=== PATIENT | female | born 1970 | race African-American/Black ===

== ENCOUNTER 2025-03-01 12:34 | Emergency (ER) | payer OTHER, SELFPAY ==
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
[2025-03-01 12:50] VITALS: BP 197/95; PULSE 81; RESP 16; TEMP 36.8; O2SAT 95; BMI 33.6
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
[2025-03-01 14:35] VITALS: BP 183/89; PULSE 81; RESP 16; TEMP 36.8; O2SAT 95
== END 2025-03-01 14:36 | disposition home or self-care (01) ==
PROVIDERS: Emergency Provider Emergency Medicine; PCP Family Medicine
DX: S13.4XXA Sprain of ligaments of cervical spine, initial encounter (principal); V43.52XA Car driver injured in collision with other type car in traffic accident, initial encounter; M79.602 Pain in left arm; R51.9 Headache, unspecified; Y93.89 Activity, other specified; Y92.414 Local residential or business street as the place of occurrence of the external cause; Y99.9 Unspecified external cause status
CPT/HCPCS: 70450; 72125; 73060; 99282; 99284

== ENCOUNTER → 2025-03-01 12:54 | Outpatient (BNV) | payer OTHER, SELFPAY | PROVIDERS: Emergency Provider Emergency Medicine; PCP Family Medicine; Visit Provider Radiology Diagnostic Radiology | DX: E04.0 Nontoxic diffuse goiter (principal); M54.2 Cervicalgia; M79.622 Pain in left upper arm; R51.9 Headache, unspecified; V89.2XXA Person injured in unspecified motor-vehicle accident, traffic, initial encounter | CPT/HCPCS: 70450; 72125; 73060 ==